=== PATIENT | male | born 1950 | race Hispanic/Latino ===

== ENCOUNTER → 2022-08-29 | Outpatient (CLI) | payer OTHER ==
[~2022-08-29] MED LIST: ACET1TAB12 PO; ASPI-1197 PO; ATOR20TA PO; BUPR150T3 PO; BUSP15TA3 PO; CYCL-309 PO; ESCI20TA38 PO; FLUO20CA30 PO; HYDR-4060 PO; METO25 PO; RANI150T7 PO; TAMS0.4C32 PO; TRAZ150T79 PO
== END | disposition home or self-care (01) ==
LOC: SHCH 10:26
PROVIDERS: ATTEND Internal Medicine Cardiovascular Disease
DX: I08.3 Combined rheumatic disorders of mitral, aortic and tricuspid valves (principal); I25.810 Atherosclerosis of coronary artery bypass graft(s) without angina pectoris
CPT/HCPCS: 93306

== ENCOUNTER 2024-01-22 12:34 | Emergency (ER) | payer OTHER ==
[~2024-01-22] VITALS: Ht 167.6 cm; Wt 70.3 kg
[2024-01-22 13:44] LABS: BASOPHILS # (AUTO) 0.02 K/uL (0.00-0.20); BASOPHILS % (AUTO) 0.2 % (0.0-5.0); EOSINOPHILS # (AUTO) 0.06 K/uL (0.00-0.70); EOSINOPHILS % (AUTO) 0.6 % (0.0-8.0); IMMATURE GRANULOCYTE ABSOLUTE 0.03 K/uL (0-1); LYMPHOCYTES # (AUTO) 1.4 K/uL (1.0-4.8); LYMPHOCYTES % (AUTO) 13.2 % (21.0-51.0); MEAN CORPUSCULAR HEMOGLOBIN 29.5 pg (27.0-33.0); MEAN CORPUSCULAR HGB CONC 33.1 g/dL (32.0-36.0); MEAN CORPUSCULAR VOLUME 89.1 fL (79-99); MONOCYTES # (AUTO) 1.1 K/uL (0.1-1.0); MONOCYTES % (AUTO) 10.8 % (3.0-13.0); NEUTROPHILS # (AUTO) 7.9 K/uL (1.8-7.7); NEUTROPHILS % (AUTO) 74.9 % (40.0-77.0); PLATELET COUNT (AUTO) 159 K/uL (130-400); RED BLOOD CELL COUNT(AUTO) 3.93 MIL/uL (4.50-6.20); RED CELL DISTRIBUTION WIDTH 12.9 % (11.0-15.5); WHITE BLOOD COUNT (AUTO) 10.6 K/uL (4.8-10.8)
[2024-01-22 14:07] LABS: POTASSIUM 4.2 mmol/L (3.5-5.1)
[2024-01-22 14:16] LABS: ALBUMIN 3.3 g/dL (3.5-5.0); TOTAL PROTEIN, SERUM 7.4 g/dL (6.0-8.3)
[2024-01-22 16:37] VITALS: BP 145/62; PULSE 60; RESP 18; O2SAT 96
== END 2024-01-22 16:39 | disposition home or self-care (01) ==
LOC: EDH 12:34
DX: R94.31 Abnormal electrocardiogram [ECG] [EKG] (principal); R10.13 Epigastric pain; I10 Essential (primary) hypertension; I25.10 Atherosclerotic heart disease of native coronary artery without angina pectoris; Z79.82 Long term (current) use of aspirin; Z79.899 Other long term (current) drug therapy; Z85.46 Personal history of malignant neoplasm of prostate; Z95.1 Presence of aortocoronary bypass graft
CPT/HCPCS: 36415; 74176; 80053; 83690; 84484; 85025; 93005

== ENCOUNTER → 2024-09-02 | Outpatient (CLI) | payer OTHER ==
[~2024-09-02] MED LIST changes: -ACET1TAB12 PO; -ATOR20TA PO; -BUPR150T3 PO; -BUSP15TA3 PO; -CYCL-309 PO; -ESCI20TA38 PO; -FLUO20CA30 PO; -HYDR-4060 PO; +IOHEXOL 350 MG/ML 100ML INFUS..BTL IV ONE; +LOSA50TA64 PO; +METO-408 PO; -METO25 PO; +PANT40TA54 PO; -RANI150T7 PO; -TAMS0.4C32 PO; -TRAZ150T79 PO
--- NOTE | 2024-09-02 13:05 | HMCIMG ---
CT ANGIO TAVR PROTOCOL HISTORY: Shortness of breath COMPARISON: None TECHNIQUE: CT angiography of the chest was performed. The study was performed using angiographic technique with maximum intensity projection reconstruction images. Patient was given 100 cc of Omnipaque through intravenous route. FINDINGS: Pulmonary arteries are not well opacified limiting evaluation. No CT evidence of aortic dissection is seen. Poststernotomy changes are seen. Coronary arterial calcifications are seen. There are bilateral interstitial fibrosis. Mild bilateral pulmonary infiltrates are seen.. No CT evidence of pleural effusion or pericardial effusion is seen. The heart is enlarged. No evidence of adrenal mass is seen. Degenerative changes of the spine are noted. IMPRESSION: 1. No CT evidence of aortic dissection is seen. Mild bilateral pulmonary infiltrates with interstitial fibrosis. CT ANGIO TAVR PROTOCOL HISTORY: Shortness of breath COMPARISON: None TECHNIQUE: CT angiography of the abdomen and pelvis was obtained using angiographic technique with maximum intensity projection reconstruction images. Patient was given 100 cc of Omnipaque through intravenous route. Oral contrast was not given. FINDINGS: There is scoliosis. The liver, spleen, adrenal glands and pancreas are unremarkable. There is no evidence of hydronephrosis bilaterally. No evidence of renal stone is seen. Fecal material is seen in the colon. There is diverticulosis. There is right renal cyst measuring 2.2 cm. There are normal size retroperitoneal and mesenteric lymph nodes. No ascites is seen. Atherosclerotic changes are present. There is diffuse atherosclerotic disease. There is infrarenal abdominal aortic aneurysm measuring 2.7 x 3 cm. The celiac, superior mesenteric and bilateral renal arteries are grossly patent. The visualized portion of the iliac and femoral arterial systems are also grossly patent. Pelvic sidewalls are symmetric bilaterally. Bladder is moderately distended. IMPRESSION: 1. Infrarenal abdominal aortic aneurysm measuring 2.7 x 3 cm. Diverticulosis. Large amount of fecal material is seen in the colon. CT was performed with one or more following dose reduction techniques: automated exposure control, adjustment of the mA and kv according to patient's size, or use of a iterative reconstruction technique.
== END | disposition home or self-care (01) ==
LOC: RAH 09:52
PROVIDERS: ATTEND Internal Medicine Cardiovascular Disease
DX: I71.43 Infrarenal abdominal aortic aneurysm, without rupture (principal); K57.90 Diverticulosis of intestine, part unspecified, without perforation or abscess without bleeding; J84.10 Pulmonary fibrosis, unspecified; I25.10 Atherosclerotic heart disease of native coronary artery without angina pectoris; I51.7 Cardiomegaly; R91.8 Other nonspecific abnormal finding of lung field; N28.1 Cyst of kidney, acquired; N32.89 Other specified disorders of bladder; M41.9 Scoliosis, unspecified; I70.90 Unspecified atherosclerosis; I35.1 Nonrheumatic aortic (valve) insufficiency; R06.02 Shortness of breath; Z98.890 Other specified postprocedural states
CPT/HCPCS: 74174; 75574; Q9967

== ENCOUNTER → 2024-10-27 | Outpatient (CLI) | payer OTHER ==
[~2024-10-27] MED LIST changes: -IOHEXOL 350 MG/ML 100ML INFUS..BTL IV ONE; +IOHEXOL-350 75 ML VIAL IV ONE
--- NOTE | 2024-10-27 15:17 | HMCIMG ---
CT CHEST W/WO CONTRAST HISTORY: Abnormal findings of the lung ulloa COMPARISON: None TECHNIQUE: Multiple sequential axial images of the chest were obtained from the thoracic inlet through upper abdomen. Patient was given 75 cc of a through intravenous route. FINDINGS: There is no evidence of pulmonary nodule or parenchymal disease. There is small right pleural effusion with compressive atelectasis. Poststernotomy changes are seen. There is no evidence of pneumothorax. There are normal size mediastinal and hilar lymph nodes. The heart is enlarged. Coronary artery calcifications are seen. Degenerative changes of the thoracolumbar spine are present. There is no evidence of adrenal nodule. IMPRESSION: 1. Interstitial fibrosis. Small right pleural effusion with compressive atelectasis. CT was performed with one or more following dose reduction techniques: automated exposure control, adjustment of the mA and kv according to patient's size, or use of a iterative reconstruction technique.
== END | disposition home or self-care (01) ==
LOC: RAH 13:55
PROVIDERS: ATTEND Internal Medicine Cardiovascular Disease
DX: J84.10 Pulmonary fibrosis, unspecified (principal); J90 Pleural effusion, not elsewhere classified; J98.11 Atelectasis; I25.10 Atherosclerotic heart disease of native coronary artery without angina pectoris; I51.7 Cardiomegaly; M47.815 Spondylosis without myelopathy or radiculopathy, thoracolumbar region; R91.8 Other nonspecific abnormal finding of lung field
CPT/HCPCS: 71270; Q9967